=== PATIENT | female | born 1945 | race Caucasian/White ===

== ENCOUNTER → 2016-11-25 | Outpatient (CLI) | payer MEDICARE ==
--- NOTE | 2016-11-25 10:00 | FL ---
EXAMINATION TYPE: FL sniff test without CXR DATE OF EXAM: 11/25/2016 COMPARISON: NONE HISTORY: Disorder of the diaphragm TECHNIQUE: Fluoroscopy. FINDINGS: 4 seconds of fluoroscopy provided. There is normal parieto-occipital movement of the left hemidiaphragm. There is blunting of the moveme nt of the right hemidiaphragm. IMPRESSION: 1. There is blunting of the diaphragmatic movement of the right hemidiaphragm. A degree of phrenic ne rve paresis is in the differential diagnosis.
== END | disposition home or self-care (01) ==
LOC: RADFLWHC 09:13
PROVIDERS: ATTEND Thoracic Surgery (Cardiothoracic Vascular Surgery)
DX: J98.6 Disorders of diaphragm (principal); Z91.048 Other nonmedicinal substance allergy status
CPT/HCPCS: 76000

== ENCOUNTER 2016-12-13 07:29 | Inpatient (IN) | payer MEDICARE ==
[2016-12-09 11:55] VITALS: BMI 38.0
[~2016-12-13 07:29] MED LIST: HEPARIN SODIUM,PORCINE 5,000 UNIT/ML 1 ML VIAL SQ ONE; ceFAZolin 2 GM in SODIUM CHLORIDE 0.9% 100 ML IVPB ONE
[2016-12-13] MEDS ORDERED: LACTATED RINGERS 1,000 ML IV ONE ×3 (08:19→10:23)
[2016-12-13] MEDS ORDERED: LIDOCAINE 1% 20 ML VIAL (10MG/ML) FOR IV START INTRADERMA ONE (08:19)
[2016-12-13] MEDS ORDERED: BUPIVACAINE (PF) 0.5% 30 ML VIAL SQ ONE ×3 (08:21→09:59)
[2016-12-13] MEDS ORDERED: ONDANSETRON 4 MG/2 ML VIAL IVP ONE (08:23)
[2016-12-13] MEDS ORDERED: DEXAMETHASONE SOD PHOSPHATE 10 MG/ML 1 ML VIAL IV ONE (08:23)
[2016-12-13] MEDS ORDERED: LACTATED RINGERS 1,000 ML IV SCH (08:30)
[2016-12-13 08:31] LABS: Basophils # (A) 0.1 k/uL (0-0.2); Basophils % (A) 1 %; CH 28.2; CHCM 32.9; Eosinophils # (A) 0.1 k/uL (0-0.7); Eosinophils % (A) 1 %; HCT 41.5 % (34.0-46.0); HDW 2.59; HGB 14.2 gm/dL (11.4-16.0); Luc # (Auto) 0.23; Luc % (Auto) 3; Lymphocytes # (A) 2.2 k/uL (1.0-4.8); Lymphocytes % (A) 30 %; MCH 29.4 pg (25.0-35.0); MCHC 34.2 g/dL (31.0-37.0); Mean Platelet Volume 7.3; Monocytes # (A) 0.5 k/uL (0-1.0); Monocytes % (A) 8 %; Neutrophils # (A) 4.1 k/uL (1.3-7.7); Neutrophils % (A) 57 %; RBC 4.83 m/uL (3.80-5.40); WBC 7.1 k/uL (3.8-10.6); WBC (Perox) 6.91
[2016-12-13 08:36] LABS: INR 1.1 (<1.1); Partial Thromboplastin Time 24.5 sec (22.0-30.0)
[2016-12-13 08:39] LABS: Anion Gap 10 mmol/L; Blood Urea Nitrogen 22 mg/dL (7-17); Carbon Dioxide 28 mmol/L (22-30); Chloride 104 mmol/L (98-107); Non-African American GFR(MDRD) >60 (>60 ml/min/1.73 sqM); Potassium 4.8 mmol/L (3.5-5.1); Sodium 142 mmol/L (137-145)
[2016-12-13] MEDS ORDERED: fentaNYL (PF) 50 MCG/ML 2 ML AMP ONE (09:09)
[2016-12-13] MEDS ORDERED: GLYCOPYRROLATE 0.2 MG/ML 2 ML VIAL ONE (09:09)
[2016-12-13] MEDS ORDERED: ePHEDrine 50 MG/ML 1 ML AMP ONE (09:09)
[2016-12-13] MEDS ORDERED: MIDAZOLAM 2 MG/2 ML VIAL ONE (09:09)
[2016-12-13] MEDS ORDERED: PROPOFOL 10 MG/ML 20 ML VIAL IV ONE (09:09)
[2016-12-13] MEDS ORDERED: SUCCINYLCHOLINE CHLORIDE 100 MG/5 ML SYR IV ONE (09:09)
[2016-12-13] MEDS ORDERED: LIDOCAINE 1% INJ 10MG/ML (20 ML MDV) ONE (09:09)
[2016-12-13] MEDS ORDERED: NEOSTIGMINE 1 MG/ML 10 ML VIAL ONE (09:09)
[2016-12-13] MEDS ORDERED: ROCURONIUM BROMIDE 10 MG/ML 10 ML VIAL IV ONE (09:09)
--- NOTE | 2016-12-13 10:40 | P.OP ---
Date of Procedure: 12/13/16 Preoperative Diagnosis: Bilateral pulmonary infiltrates Postoperative Diagnosis: Bilateral pulmonary infiltrates Procedure(s) Performed: Right thoracoscopic lung biopsy Implants: Anesthesia: NICOLEA Surgeon: Inder Ryan Rad Tech #1: German White Estimated Blood Loss (ml): 25 IV fluids (ml): 1,000 Urine output (ml): 125 Pathology: other (Biopsies of both right upper and right lower lobe sent for pathology and culture) Condition: stable Disposition: PACU Indications for Procedure: 71-year-old female with worsening dyspnea on exertion. Long history of COPD. Computed tomography scan showed bilateral pulmonary infiltrates. Also noted was elevated right hemidiaphragm. Sniff test demonstrated no evidence of paradoxical motion of the right hemidiaphragm with diminished 8 excursion of the diaphragm. Diagnostic lung biopsy was requested by Dr. Spencer. Operative Findings: The lung had evidence of chronic obstructive pulmonary disease with emphysematous change and anthracotic pigmentation. Quality of the lung tissue was quite poor with increased friability of the lung tissue itself. Description of Procedure: The patient was brought to the operating room placed supine on the operating table anesthetized and intubated with a double-lumen endotracheal tube. Tube was positioned with fiberoptic bronchoscopy. No endobronchial lesions were noted. The patient was turned in the left lateral decubitus position and the right chest sterilely prepped and draped. 3 one-inch incisions were made in the right chest carried down through skin and subcutaneous tissue and into the right pleural space. The right lung was deflated. The video thoracoscope was introduced with findings as noted above. Generous wedge biopsies of the right upper lobe and right lower lobe were obtained. These were appropriately divided on the field and sent for both culture and pathology. A 28-Cuban chest tube was placed through separate stab incision and positioned posterior apically. It was secured with an 0 Ethibond suture. Rib blocks were performed at the level of the incisions posteriorly interspaces 5,6,7 and 8. The lung was reinflated under thoracoscopic visualization. Incisions were closed with layers of Vicryl suture. Steri-Strips and dry sterile dressings were applied. Patient was turned supine and extubated and transferred to recovery in stable condition.
[2016-12-13] MEDS: HYDROmorphone 1 MG/ML 1 ML SYRINGE IVP PRN ×2 (10:59→11:16)
--- NOTE | 2016-12-13 11:08 | XR ---
EXAMINATION TYPE: XR chest 1V portable DATE OF EXAM: 12/13/2016 Comparison: None Clinical History: 71-year-old female pneumothorax Findings: Low lung volumes with diffuse interstitial opacities. Question some surgical changes in the right liss g. Medial and apically directed right-sided chest tube is present without appreciable pneumothorax. S ome more patchy opacities present at the peripheral left base and right suprahilar region. Also sugge stion of small effusions. Impression: 1. Right-sided chest tube. No definite pneumothorax seen on this portable exam. 2. Correlate for CHF and interstitial pulmonary edema with small effusions. Scattered patchy areas of more confluent edema or infiltrates also noted.
[2016-12-13] MEDS ORDERED: ACETAMINOPHEN IV (For NPO) 1,000 MG/100 ML VIAL IVPB ONE (11:10)
[2016-12-13] MEDS ORDERED: IPRATROPIUM-ALBUTEROL 3 ML NEB IH PRN (12:20)
[2016-12-13] MEDS ORDERED: HYDROcodone/APAP 5-325MG 1 EACH TAB PO PRN ×2 (12:20)
[2016-12-13] MEDS ORDERED: CYCLOBENZAPRINE 10 MG TAB PO PRN (12:20)
[2016-12-13] MEDS ORDERED: ONDANSETRON 4 MG/2 ML VIAL IVP PRN (12:20)
[2016-12-13] MEDS ORDERED: DEXTROSE 5%-0.45% NACL 1,000 ML IV SCH (12:20)
[2016-12-13] MEDS ORDERED: ACETAMINOPHEN IV (For NPO) 1,000 MG in EMPTY BAG 1 BAG IVPB STA (12:20)
[2016-12-13] MEDS ORDERED: ALPRAZolam 0.25 MG TAB PO PRN (12:20)
[2016-12-13] MEDS: IPRATROPIUM-ALBUTEROL 3 ML NEB IH SCH ×3 (12:25→19:01)
[2016-12-13] MEDS: KETOROLAC 30 MG/ML 1 ML VIAL IVP PRN ×2 (12:43→18:54)
--- NOTE | 2016-12-13 15:48 | P.CNPUL ---
History of Present Illness Consult date: 12/13/16 Requesting physician: Inder Ryan Reason for consult: other (Interstitial lung disease, patient is status post lung biopsy.) Chief complaint: Shortness of breath History of present illness: This is a 71-year-old female with history of multiple medical problems including osteoarthritis, obesity and previous lab band procedure 2, patient saw me a few weeks ago with chronic cough of 2 years duration, and shortness of breath on exertion. Cough was described as dry hacking cough, nonproductive, no wheezing, no fever, no chills, no hemoptysis. Patient was also complaining of shortness of breath upon exertion for the last 2 years. Chest x-ray and CT of the chest were suggestive of mild interstitial lung disease. Hence patient had extensive workup for possible underlying connective tissue disease, and her workup was relatively negative. Although she was told about 12 years ago that she may have had rheumatoid arthritis, but apparently was seronegative rheumatoid arthritis. Patient underwent a sniff test to evaluate the right hemidiaphragm for possible paralysis, and she had a normal sniff test. Hence the patient underwent thoracoscopic lung biopsy for tissue diagnosis and to be able to pinpoint the exact etiology of her interstitial lung disease if possible. Postoperatively, I was asked to see the patient on consultation. Patient had remote smoking history, and she does not drink any alcohol. Her PFT in my office showed evidence of restrictive lung disease. Echocardiogram failed to show evidence of pulmonary hypertension. Review of Systems Constitutional: No weight loss, no fever, no chills, she does have generalized weakness, vague aches and pains. HEENT: No headaches no blurred vision no dizziness. No history of seizures. No sore throat. No cervical lymphadenopathy. Chest: As noted in the history of the present illness. Cardiac denies any chest pain, no palpitations, no diaphoresis. GI: Denies any nausea vomiting abdominal pain melena or hematemesis. Genitourinary: Denies any dysuria frequency or urgency. Neurologic: Denies any headaches, blurred vision, dizziness, or ataxia. Musculoskeletal: Vague aches and pains. Hematologic: Denies any symptoms of bleeding clotting or bruising. Psychiatric: No symptoms of active depression. Past Medical History Past Medical History: GERD/Reflux, Osteoarthritis (OA), Thyroid Disorder Additional Past Medical History / Comment(s): tremor left hand, SOB w/exertion- started in May., chronic back pain, scheduled for heart echo @[facility] Tuesday History of Any Multi-Drug Resistant Organisms: None Reported Past Surgical History: Back Surgery, Bariatric Surgery, Joint Replacement, Tubal Ligation Additional Past Surgical History / Comment(s): back surg. x 2, bilateral knee replacement-left x2, lap band surg. Past Anesthesia/Blood Transfusion Reactions: Previous Problems w/ Anesthesia Additional Past Anesthesia/Blood Transfusion Reaction / Comment(s): slow to wake up only once Smoking Status: Former smoker - Past Family History Mother Family Medical History: Cancer Medications and Allergies Home Medications Medication Instructions Recorded Confirmed Type ALPRAZolam [Xanax] 0.25 mg PO BID PRN 12/09/16 12/13/16 History Biotin 900 mcg PO DAILY 12/09/16 12/13/16 History Celecoxib [CeleBREX] 200 mg PO DAILY 12/09/16 12/13/16 History Cyclobenzaprine [Flexeril] 10 mg PO TID PRN 12/09/16 12/13/16 History DULoxetine HCL [Cymbalta] 60 mg PO DAILY 12/09/16 12/13/16 History HYDROcodone/APAP 5-325MG [[place] 1 - 2 tab PO Q6HR PRN 12/09/16 12/13/16 History 5-325] Levothyroxine Sodium [Synthroid] 50 mcg PO DAILY 12/09/16 12/13/16 History Magnesium 200 mg PO DAILY 12/09/16 12/13/16 History Montelukast [Singulair] 10 mg PO HS 12/09/16 12/13/16 History Ranitidine HCl [Zantac] 150 mg PO BID 12/09/16 12/13/16 History hydrOXYzine PAMOATE [Vistaril] 25 mg PO BID PRN 12/09/16 12/13/16 History Allergies Allergy/AdvReac Type Severity Reaction Status Date / Time nickel Allergy Rash/Hives Verified 12/13/16 11:02 Physical Exam Vitals: Vital Signs Temp Pulse Pulse Pulse Resp BP BP 12/13/16 15:30 88 12/13/16 15:08 96.8 F L 85 16 111/53 12/13/16 11:59 96.9 F L 90 16 120/71 12/13/16 11:34 94 16 127/59 07/03/17 11:23 90 16 142/65 12/13/16 11:08 85 16 139/62 12/13/16 10:53 89 16 135/62 12/13/16 10:37 97.2 F L 92 16 151/66 12/13/16 07:55 97.4 F L 85 18 145/83 Pulse Ox 12/13/16 15:30 12/13/16 15:08 95 12/13/16 11:59 93 L 12/13/16 11:34 92 L 12/13/16 11:23 92 L 12/13/16 11:08 96 12/13/16 10:53 96 12/13/16 10:37 93 L 12/13/16 07:55 95 Intake and Output 12/13/16 12/13/16 12/13/16 06:59 14:59 22:59 Intake Total 1200 Output Total 150 Balance 1050 Intake: IV 1200 Output: Urine 125 Estimated Blood Loss 25 Other: # Voids 1 Physical Exam: Revealed a 71-year-old female, in no distress. HEENT:[Neck is supple.] [No neck masses.] [No thyromegaly.] [No JVD.] Chest: [Crackles at the bases, right sided chest tube is noted. Cardiac Exam: [Normal S1 and S2, no S3 gallop, no murmur.] Abdomen: [Soft, nontender, no megaly, no rebound, no guarding, normal bowel sounds.] Extremities: [No clubbing, no edema, no cyanosis.] Neurological Exam: [No focal neurologic deficit.] Results - Laboratory Findings CBC and BMP: 12/13/16 08:13 12/13/16 08:13 PT/INR, D-dimer PT 11.0 sec (9.0-12.0) 12/13/16 08:13 INR 1.1 (<1.1) 12/13/16 08:13 Abnormal lab findings: Abnormal Labs 12/13/16 08:13 BUN 22 H - Diagnostic Findings Chest x-ray: image reviewed (Postoperative changes right sided chest tube is noted, and evidence of interstitial lung disease) Assessment and Plan Plan: Impression: 1 Status post thoracoscopic lung biopsy from right upper lobe and right lower lobe. Postoperative day 0. 2 interstitial lung disease, status post lung biopsy. 3 chronic shortness of breath secondary to interstitial lung disease/ restrictive lung disease. 4 multiple comorbidities including history of hypothyroidism, GERD, osteoarthritis, and history of vitamin D deficiency. Recommendation: Continue present treatment plan, patient is already on bronchodilators, added incentive spirometry, resume her usual meds, possibly discharge the patient home in the next 24 hours once the chest tube has been removed. We'll continue to follow. Time with Patient: Greater than 30
[2016-12-13] MEDS ORDERED: ceFAZolin 2 GM in SODIUM CHLORIDE 0.9% 100 ML IVPB SCH (16:00)
[2016-12-13] MEDS ORDERED: ACETAMINOPHEN IV (For NPO) 1,000 MG in EMPTY BAG 1 BAG IVPB ONE (17:00)
[2016-12-13] MEDS: HEPARIN SODIUM,PORCINE 5,000 UNIT/ML 1 ML VIAL SQ SCH (20:05)
[2016-12-13] MEDS: FAMOTIDINE 20 MG TAB PO SCH (20:05)
[2016-12-13] MEDS ORDERED: MONTELUKAST 10 MG TAB PO SCH (21:00)
[2016-12-14] MEDS: KETOROLAC 30 MG/ML 1 ML VIAL IVP PRN ×2 (00:29→06:16)
[2016-12-14 06:08] LABS: Basophils % (A) 0 %; CH 28.4; Eosinophils % (A) 0 %; HCT 36.4 % (34.0-46.0); HGB 12.4 gm/dL (11.4-16.0); Luc # (Auto) 0.12; Luc % (Auto) 1; Lymphocytes # (A) 1.3 k/uL (1.0-4.8); Lymphocytes % (A) 10 %; MCH 29.5 pg (25.0-35.0); MCHC 34.1 g/dL (31.0-37.0); MCV 86.4 fL (80.0-100.0); Monocytes # (A) 0.8 k/uL (0-1.0); Monocytes % (A) 6 %; Neutrophils # (A) 11.2 k/uL (1.3-7.7); Neutrophils % (A) 83 %; RBC 4.21 m/uL (3.80-5.40); RDW 13.2 % (11.5-15.5); WBC 13.5 k/uL (3.8-10.6); WBC (Perox) 13.71
[2016-12-14 06:18] LABS: Anion Gap 6 mmol/L; Blood Urea Nitrogen 20 mg/dL (7-17); Calcium 9.1 mg/dL (8.4-10.2); Carbon Dioxide 28 mmol/L (22-30); Chloride 104 mmol/L (98-107); Glucose 121 mg/dL (74-99); Non-African American GFR(MDRD) >60 (>60 ml/min/1.73 sqM); Potassium 4.6 mmol/L (3.5-5.1); Sodium 138 mmol/L (137-145)
[2016-12-14] MEDS ORDERED: LEVOTHYROXINE 50 MCG TAB PO SCH (06:30)
--- NOTE | 2016-12-14 07:38 | XR ---
EXAMINATION TYPE: XR chest 1V DATE OF EXAM: 12/14/2016 COMPARISON: Yesterday HISTORY: Postop lung surgery TECHNIQUE: Single frontal view of the chest is obtained. FINDINGS: There is right chest tube that appears in good position. I see no pneumothorax. There are chest leads. There is coarsening of interstitial markings. There is elevated right diaphragm. There i s no gross heart failure. IMPRESSION: Right chest tube is in good position. There is some pulmonary interstitial edema that is improved slightly compared to yesterday.
--- NOTE | 2016-12-14 07:43 | P.PN ---
Subjective Principal diagnosis: Bilateral pulmonary infiltrates POD #1 right thorascopic lung biopsy. Patient is currently sitting up in bed in no acute distress. States pain is mostly controlled on ordered pain medications. Objective - Vital Signs Vital signs: Vital Signs Temp 97.2 F L 12/14/16 04:00 Pulse 76 12/14/16 04:00 Resp 16 12/14/16 04:00 BP 105/71 12/14/16 04:00 Pulse Ox 97 12/14/16 04:00 Intake & Output 12/13/16 12/14/16 12/14/16 18:59 06:59 18:59 Intake Total 1318 640 Output Total 150 850 Balance 1168 -210 Weight 99.1 kg Intake: IV 1200 640 Dextrose 5%-0.45% NaCl 1, 640 000 ml @ 40 mls/hr IV . Q24H RAJIV Rx#:[id number] Oral 118 Output: Chest Tube Drainage 37 Chest Tube Right Lateral 37 Chest Drainage 13 Right Chest 13 Urine 125 800 Uretheral (Mike) 800 Estimated Blood Loss 25 Other: Voiding Method Toilet # Voids 1 1 - Constitutional General appearance: Present: cooperative, no acute distress - Respiratory Details: Lungs sounds diminished bilaterally. Respirations even, nonlabored. Currently on room air with oxygen saturation 93%. Able to achieve 750 mL on her incentive spirometry. Right pleural chest tube to -20 cm wall suction, 50 mL serous output overnight, 140 mL since surgery. No air leak present. Chest tube placed to waterseal. - Cardiovascular Details: S1, S2 present. Regular rate and rhythm, normal sinus rhythm on telemetry. - Gastrointestinal Gastrointestinal Comment(s): Abdomen soft, nontender, nondistended. Active bowel sounds 4 quadrants. Tolerating diet. - Genitourinary Genitourinary Comment(s): Voiding clear, yellow urine. - Musculoskeletal Musculoskeletal: Present: gait normal, strength equal bilaterally - Psychiatric Psychiatric: Present: A&O x's 3, appropriate affect, intact judgment & insight - Allied health notes Allied health notes reviewed: nursing - Labs CBC & Chem 7: 12/14/16 05:39 12/14/16 05:37 Labs: Abnormal Lab Results - Last 24 Hours (Table) 12/13/16 12/14/16 12/14/16 Range/Units 08:13 05:37 05:39 WBC 13.5 H (3.8-10.6) k/uL Neutrophils # 11.2 H (1.3-7.7) k/uL BUN 22 H 20 H (7-17) mg/dL Glucose 121 H (74-99) mg/dL Microbiology - Last 24 Hours (Table) 12/13/16 11:00 Gram Stain - Preliminary Lung - Right Lower Lobe Tissue Culture - Preliminary 12/13/16 11:00 Gram Stain - Preliminary Lung - Right Upper Lobe Tissue Culture - Preliminary 12/13/16 11:00 Acid Fast Bacilli Culture - Preliminary Lung - Right Upper Lobe 12/13/16 11:00 Anaerobic Culture - Preliminary Lung - Right Upper Lobe 12/13/16 11:00 Acid Fast Bacilli Culture - Preliminary Lung - Right Lower Lobe 12/13/16 11:00 Anaerobic Culture - Preliminary Lung - Right Lower Lobe - Imaging and Cardiology Chest x-ray: image reviewed Assessment and Plan (1) Bilateral pulmonary infiltrates on chest x-ray Status: Acute (2) COPD (chronic obstructive pulmonary disease) Status: Acute Plan: 1. Chest tube clamped. Will unclamp in one hour, if no air leak will discontinue chest tube and obtain chest x-ray. 2. Encourage incentive spirometry use. 3. Increase activity, ambulate in hallway. 4. Anticipate discharging patient to home once chest tube is removed with follow-up appointments with Dr. Spencer and Dr. Ryan.. Time with Patient: Greater than 30
[2016-12-14] MEDS: IPRATROPIUM-ALBUTEROL 3 ML NEB IH SCH ×2 (07:44→11:55)
[2016-12-14] MEDS: HEPARIN SODIUM,PORCINE 5,000 UNIT/ML 1 ML VIAL SQ SCH (08:57)
[2016-12-14] MEDS: FAMOTIDINE 20 MG TAB PO SCH (08:57)
[2016-12-14] MEDS ORDERED: DULoxetine HCL 60 MG CAPSULE.DR PO SCH (09:00)
[2016-12-14] MEDS ORDERED: MAGNESIUM OXIDE 400 MG TAB PO SCH (09:00)
--- NOTE | 2016-12-14 10:11 | XR ---
EXAMINATION TYPE: XR chest 2V DATE OF EXAM: 12/14/2016 COMPARISON: Today HISTORY: Chest tube removed TECHNIQUE: Frontal and lateral views of the chest are obtained. FINDINGS: There is been removal of the large right chest tube. There is elevated right diaphragm. Th ere is a small infiltrate in the right upper lobe. There is no gross heart failure. There is coarseni ng of interstitial markings. IMPRESSION: No pneumothorax. Mild right upper lobe infiltrate without change compared to exam this m orning. Interstitial pulmonary infiltrates.
--- NOTE | 2016-12-14 10:42 | P.DS ---
Providers Date of admission: 12/13/16 07:29 Attending physician: Inder Ryan Consults: 12/13/16 12:20 Consult Physician Routine Consulting Provider: Debbi Spencer Reason/Comments: Pulmonary management Do you want consulting provider notified?: Yes Primary care physician: Nancy Roldan - Discharge Diagnosis(es) (1) Bilateral pulmonary infiltrates on chest x-ray Current Visit: Yes Status: Acute (2) COPD (chronic obstructive pulmonary disease) Current Visit: Yes Status: Acute Hospital Course: FINAL DIAGNOSIS: 1.[ Bilateral pulmonary infiltrates] 2.[ COPD] 3.[ Obesity status post lap band surgery] 4.[ Arthritis] 5.[ Previous tobacco dependence] PRINCIPAL PROCEDURE: [] 1.[ Right thoracoscopic lung biopsy] HISTORY OF PRESENT ILLNESS: [This 71-year-old lady presented with marked shortness of breath and dyspnea on exertion which began in August. She initially saw her primary care physician, had a chest x-ray and CAT scan, which was read as showing bilateral pulmonary infiltrates consistent with early pulmonary fibrosis. She was referred to Dr. Spencer who performed pulmonary function tests demonstrating restrictive disease as well as significant AA gradient and diminished DLCO. Secondary to these findings the patient was referred to Dr. Ryan of cardiothoracic surgery for diagnostic lung biopsy. The patient was seen and examined in Dr. Ryan's office, all risks and benefits were explained in detail to the patient, and she agreed to proceed with surgery.] HOSPITAL COURSE:[ The patient was brought to the hospital on 12/13/2016, taken to the preoperative area, prepared in the usual fashion, and subsequently taken to the operating room where Dr. Ryan performed an elective right thoracoscopic lung biopsy. Upon completion of surgery the patient was extubated and transferred to the postanesthesia recovery unit where she was recovered and monitored hemodynamically. Once considered stable she was transferred to [address] [place] [address] for further monitoring and rehabilitation. Her oxygen was titrated down, she she was ambulating in the hallway, her chest tube was discontinued on postoperative day #1, repeat chest x-ray revealed no pneumothorax, and she was ready to be discharged to home in stable condition. She received written and verbal instruction regarding her medications, activity restrictions, signs and symptoms requiring physician notification, and follow- up appointments.] COMPLICATIONS: [The patient experienced no postoperative complications.] CONSULTATIONS: 1.[ Dr. Tj for pulmonology] DISCHARGE INSTRUCTIONS: 1. No driving for 2 weeks, or until physician gives their ok. 2. The patient should sleep in their own bed, no medical bed needed. 3. No lifting, pushing, or pulling more than 10 pounds for 2 weeks. The physician will advise of any restriction changes. 4. Continue pain control per as needed orders. 5. Continue with incentive spirometry until otherwise directed by the physician. 6. Shower daily starting 12-16-16 using liquid antibacterial soap and a separate white washcloth for each individual incision. 7. Routine incision care. No powders, lotions, ointments on incisions. 8. Please call surgeon/[employer] for temp greater than 101 F or purulent drainage from incisions. Plan - Discharge Summary New Discharge Prescriptions: Continue Celecoxib [CeleBREX] 200 mg PO DAILY Levothyroxine Sodium [Synthroid] 50 mcg PO DAILY Ranitidine HCl [Zantac] 150 mg PO BID Montelukast [Singulair] 10 mg PO HS DULoxetine HCL [Cymbalta] 60 mg PO DAILY Cyclobenzaprine [Flexeril] 10 mg PO TID PRN PRN Reason: Muscle Spasm ALPRAZolam [Xanax] 0.25 mg PO BID PRN PRN Reason: Anxiety HYDROcodone/APAP 5-325MG [[place] 5-325] 1 - 2 tab PO Q6HR PRN PRN Reason: Pain hydrOXYzine PAMOATE [Vistaril] 25 mg PO BID PRN PRN Reason: Itching Magnesium 200 mg PO DAILY Biotin 900 mcg PO DAILY Discharge Medication List ALPRAZolam [Xanax] 0.25 mg PO BID PRN 12/09/16 [History] Biotin 900 mcg PO DAILY 12/09/16 [History] Celecoxib [CeleBREX] 200 mg PO DAILY 12/09/16 [History] Cyclobenzaprine [Flexeril] 10 mg PO TID PRN 12/09/16 [History] DULoxetine HCL [Cymbalta] 60 mg PO DAILY 12/09/16 [History] HYDROcodone/APAP 5-325MG [[place] 5-325] 1 - 2 tab PO Q6HR PRN 12/09/16 [History] Levothyroxine Sodium [Synthroid] 50 mcg PO DAILY 12/09/16 [History] Magnesium 200 mg PO DAILY 12/09/16 [History] Montelukast [Singulair] 10 mg PO HS 12/09/16 [History] Ranitidine HCl [Zantac] 150 mg PO BID 12/09/16 [History] hydrOXYzine PAMOATE [Vistaril] 25 mg PO BID PRN 12/09/16 [History] Follow up Appointment(s)/Referral(s): Debbi Spencer MD [STAFF PHYSICIAN] - 1 Week Inder Ryan MD [STAFF PHYSICIAN] - 1 Week Activity/Diet/Wound Care/Special Instructions: DISCHARGE INSTRUCTIONS: 1. No driving for 2 weeks, or until physician gives their ok. 2. The patient should sleep in their own bed, no medical bed needed. 3. No lifting, pushing, or pulling more than 10 pounds for 2 weeks. The physician will advise of any restriction changes. 4. Continue pain control per as needed orders. 5. Continue with incentive spirometry until otherwise directed by the physician. 6. Shower daily starting 12-16-16 using liquid antibacterial soap and a separate white washcloth for each individual incision. 7. Routine incision care. No powders, lotions, ointments on incisions. 8. Please call surgeon/[employer] for temp greater than 101 F or purulent drainage from incisions. Discharge Disposition: HOME SELF-CARE
[2016-12-14 11:09] VITALS: BP 138/72; RESP 18; TEMP 97.6
--- NOTE | 2016-12-14 11:10 | P.PN ---
Subjective Principal diagnosis: Interstitial lung disease, patient is status post thoracoscopic lung biopsy. This is a 71-year-old female with history of multiple medical problems including osteoarthritis, obesity and previous lab band procedure 2, patient saw me a few weeks ago with chronic cough of 2 years duration, and shortness of breath on exertion. Cough was described as dry hacking cough, nonproductive, no wheezing, no fever, no chills, no hemoptysis. Patient was also complaining of shortness of breath upon exertion for the last 2 years. Chest x-ray and CT of the chest were suggestive of mild interstitial lung disease. Hence patient had extensive workup for possible underlying connective tissue disease, and her workup was relatively negative. Although she was told about 12 years ago that she may have had rheumatoid arthritis, but apparently was seronegative rheumatoid arthritis. Patient underwent a sniff test to evaluate the right hemidiaphragm for possible paralysis, and she had a normal sniff test. Hence the patient underwent thoracoscopic lung biopsy for tissue diagnosis and to be able to pinpoint the exact etiology of her interstitial lung disease if possible. Postoperatively, I was asked to see the patient on consultation. Patient had remote smoking history, and she does not drink any alcohol. Her PFT in my office showed evidence of restrictive lung disease. Echocardiogram failed to show evidence of pulmonary hypertension. Patient was reevaluated today on 12/14/2016, doing well, chest tube has been removed, patient is going to be discharged home today, and she would have follow -up on outpatient basis. Objective - Vital Signs Vital signs: Vital Signs Temp 96.8 F L 12/14/16 09:00 Pulse 95 12/14/16 09:00 Resp 20 12/14/16 09:00 BP 126/51 12/14/16 09:00 Pulse Ox 95 12/14/16 09:00 Intake & Output 12/13/16 12/14/16 12/14/16 18:59 06:59 18:59 Intake Total 1318 640 Output Total 150 850 Balance 1168 -210 Weight 99.1 kg Intake: IV 1200 640 Dextrose 5%-0.45% NaCl 1, 640 000 ml @ 40 mls/hr IV . Q24H RAJIV Rx#:[id number] Oral 118 Output: Chest Tube Drainage 37 Chest Tube Right Lateral 37 Chest Drainage 13 Right Chest 13 Urine 125 800 Uretheral (Mike) 800 Estimated Blood Loss 25 Other: Voiding Method Toilet Toilet # Voids 1 1 - Exam Physical Exam HEENT:[Neck is supple.] [No neck masses.] [No thyromegaly.] [No JVD.] Chest: [Minimal fine crackles at the bases] Cardiac Exam: [Normal S1 and S2, no S3 gallop, no murmur.] Abdomen: [Soft, nontender, no megaly, no rebound, no guarding, normal bowel sounds.] Extremities: [No clubbing, no edema, no cyanosis.] Neurological Exam: [No focal neurologic deficit.] - Labs CBC & Chem 7: 12/14/16 05:39 12/14/16 05:37 Labs: Abnormal Lab Results - Last 24 Hours (Table) 12/14/16 12/14/16 Range/Units 05:37 05:39 WBC 13.5 H (3.8-10.6) k/uL Neutrophils # 11.2 H (1.3-7.7) k/uL BUN 20 H (7-17) mg/dL Glucose 121 H (74-99) mg/dL Microbiology - Last 24 Hours (Table) 12/13/16 11:00 Gram Stain - Preliminary Lung - Right Upper Lobe Tissue Culture - Preliminary 12/13/16 11:00 Gram Stain - Preliminary Lung - Right Lower Lobe Tissue Culture - Preliminary 12/13/16 11:00 Acid Fast Bacilli Culture - Preliminary Lung - Right Upper Lobe 12/13/16 11:00 Anaerobic Culture - Preliminary Lung - Right Upper Lobe 12/13/16 11:00 Acid Fast Bacilli Culture - Preliminary Lung - Right Lower Lobe 12/13/16 11:00 Anaerobic Culture - Preliminary Lung - Right Lower Lobe Assessment and Plan Plan: Impression: 1 Status post thoracoscopic lung biopsy from right upper lobe and right lower lobe. Postoperative day #1 2 interstitial lung disease, status post lung biopsy. 3 chronic shortness of breath secondary to interstitial lung disease/ restrictive lung disease. 4 multiple comorbidities including history of hypothyroidism, GERD, osteoarthritis, and history of vitamin D deficiency. Recommendation: Agree with discharge planning, follow-up on outpatient basis with Dr. Stover in one week. Patient was advised to call our office in the next few days for setting up an appointment with Dr. Stover or Dr. Ann. Time with Patient: Less than 30
[2016-12-14 12:06] VITALS: PULSE 80
== END 2016-12-14 13:02 | disposition home or self-care (01) | DRG 168 ==
LOC: 2ORWHC 07:29 → EDSTATUS 09:00 → 6SEL 10:40
PROVIDERS: ADMIT Thoracic Surgery (Cardiothoracic Vascular Surgery); ATTEND Thoracic Surgery (Cardiothoracic Vascular Surgery)
PROC: 0BBC4ZX Excision of Right Upper Lung Lobe, Percutaneous Endoscopic Approach, Diagnostic (ICD-10-PCS; 2016-12-13)
PROC: 0BBF4ZX Excision of Right Lower Lung Lobe, Percutaneous Endoscopic Approach, Diagnostic (ICD-10-PCS; principal; 2016-12-13 09:00)
DX: R91.8 Other nonspecific abnormal finding of lung field (principal); J44.9 Chronic obstructive pulmonary disease, unspecified; J98.4 Other disorders of lung; E55.9 Vitamin D deficiency, unspecified; E03.9 Hypothyroidism, unspecified; K21.9 Gastro-esophageal reflux disease without esophagitis; M19.91 Primary osteoarthritis, unspecified site; G89.29 Other chronic pain; R25.1 Tremor, unspecified; M54.9 Dorsalgia, unspecified; E66.9 Obesity, unspecified; Z98.84 Bariatric surgery status; Z87.891 Personal history of nicotine dependence; Z96.653 Presence of artificial knee joint, bilateral; Z79.1 Long term (current) use of non-steroidal anti-inflammatories (NSAID); Z79.899 Other long term (current) drug therapy; Z88.9 Allergy status to unspecified drugs, medicaments and biological substances
CPT/HCPCS: 71010; 71020; 80048; 80051; 82565; 84520; 85025; 85610; 85730; 87070; 87075; 87116; 87205; 87206; 88307; 88312; 93005; 94640

== ENCOUNTER → 2017-05-09 | Outpatient (CLI) | payer MEDICARE ==
[2017-05-09 13:54] VITALS: BP 165/86; PULSE 49; TEMP 97.9; BMI 37.8
--- NOTE | 2017-05-09 15:35 | P.HPBAR ---
Bariatric H&P - History & Physicial H&P Date: 05/09/17 History & Physicial: Visit/CC: lap band follow up Patient initial contact: Initial weight: Initial weight in pounds: Height: 5 ft 3.5 in Initial BMI: Last weight: Current weight: 98.293 kg Current weight in pounds: 216.70 Current BMI: 37.8 [place] body weight (based on NIH guidelines): 53.297 kg Excess body weight loss: The patient is a 72 year-old F who presents for Bariatric Assessment. The patient has had complaints of dysphagia. She is recently diagnosed with pulmonary fibrosis and wished to have her LAP-BAND removed. She's had trouble with GERD and dysphagia. She is unsure if her band is empty. Past Medical History Past Medical History: GERD/Reflux, Osteoarthritis (OA), Thyroid Disorder Additional Past Medical History / Comment(s): tremor left hand, SOB w/exertion- started in May., chronic back pain, scheduled for heart echo @[facility] Tuesday pulmonary fibrosis History of Any Multi-Drug Resistant Organisms: None Reported Past Surgical History: Back Surgery, Bariatric Surgery, Joint Replacement, Tubal Ligation Additional Past Surgical History / Comment(s): back surg. x 2, bilateral knee replacement-left x2, lap band surg. Past Anesthesia/Blood Transfusion Reactions: Previous Problems w/ Anesthesia Additional Past Anesthesia/Blood Transfusion Reaction / Comm: slow to wake up only once Past Psychological History: Anxiety Smoking Status: Former smoker Past Alcohol Use History: Occasional Additional Past Alcohol Use History / Comment(s): quit smoking 20 yrs. ago, 1-1/ 2ppd for 20 yrs. Past Drug Use History: None Reported - Past Family History Mother Family Medical History: Cancer Surgical - Exam Vital Signs Temp Pulse BP 97.9 F 49 L 165/86 05/09/17 13:51 05/09/17 13:51 05/09/17 13:51 - General well developed, no distress - Abdomen Abdomen: soft, non tender Bariatric Assessment & Plan Plan: The patient's LAP-BAND was empty. She had 6.8 mL removed from her band. The patient will be scheduled for explantation of her band next week. Bariatric Checklist Checklist: Plan: Checklist: EGD: 1. Hiatal hernia: 2. H. Pylori: HgbA1c: Vitamin D: Smoking: Former smoker Primary care physician referral: dr jenkins Psychiatry clearance: Cardiology clearance: Sleep study: Diet journal: VTE risk score: VTE risk level: Rehab needs at discharge:
== END | disposition home or self-care (01) ==
LOC: BARWHC3 13:09
PROVIDERS: ATTEND Surgery
DX: Z48.815 Encounter for surgical aftercare following surgery on the digestive system (principal); Z87.891 Personal history of nicotine dependence; Z98.84 Bariatric surgery status
CPT/HCPCS: 99202

== ENCOUNTER → 2017-05-09 | Outpatient (CLI) | payer MEDICARE ==
[2017-05-09 14:57] LABS: Basophils % (A) 1 %; CH 29.7; CHCM 34.2; Eosinophils # (A) 0.1 k/uL (0-0.7); Eosinophils % (A) 1 %; HCT 42.3 % (34.0-46.0); HGB 14.2 gm/dL (11.4-16.0); Luc % (Auto) 2; Lymphocytes # (A) 1.9 k/uL (1.0-4.8); Lymphocytes % (A) 22 %; MCH 29.2 pg (25.0-35.0); MCHC 33.4 g/dL (31.0-37.0); MCV 87.3 fL (80.0-100.0); Mean Platelet Volume 6.8; Monocytes # (A) 0.7 k/uL (0-1.0); Monocytes % (A) 7 %; Neutrophils # (A) 5.9 k/uL (1.3-7.7); Neutrophils % (A) 67 %; RBC 4.85 m/uL (3.80-5.40); WBC 8.8 k/uL (3.8-10.6); WBC (Perox) 8.51
[2017-05-09 15:00] LABS: ALT 26 U/L (9-52); AST 28 U/L (14-36); Alkaline Phosphatase 68 U/L (38-126); Anion Gap 9 mmol/L; Blood Urea Nitrogen 13 mg/dL (7-17); Calcium 9.5 mg/dL (8.4-10.2); Carbon Dioxide 26 mmol/L (22-30); Chloride 106 mmol/L (98-107); Glucose 139 mg/dL (74-99); Non-African American GFR(MDRD) >60 (>60 ml/min/1.73 sqM); Potassium 4.1 mmol/L (3.5-5.1); Sodium 141 mmol/L (137-145); Total Bilirubin 0.6 mg/dL (0.2-1.3); Total Protein 7.4 g/dL (6.3-8.2)
== END | disposition home or self-care (01) ==
LOC: LABPAT 14:26
PROVIDERS: ATTEND Surgery
DX: Z01.818 Encounter for other preprocedural examination (principal)
CPT/HCPCS: 36415; 80053; 85025; 99202

== ENCOUNTER → 2017-07-18 | Outpatient (CLI) | payer MEDICARE ==
[2017-07-18 14:27] VITALS: BP 183/83; PULSE 91; RESP 15; TEMP 98.1; BMI 38.4
--- NOTE | 2017-07-18 15:47 | P.HPBAR ---
Bariatric H&P - History & Physicial H&P Date: 07/18/17 History & Physicial: Visit/CC: band removal sx f/u Patient initial contact: Initial weight: Initial weight in pounds: Height: 5 ft 3.5 in Initial BMI: Last weight: Current weight: 100.017 kg Current weight in pounds: 220.50 Current BMI: 38.4 [place] body weight (based on NIH guidelines): 53.297 kg Excess body weight loss: The patient is a 72 year-old F who presents for Bariatric Assessment. Patient presents today for bariatric follow-up. She had her LAP-BAND removed several weeks ago. She's gained 6 pounds since her band was removed. Past Medical History Past Medical History: GERD/Reflux, Osteoarthritis (OA), Thyroid Disorder Additional Past Medical History / Comment(s): increased in heartburn,acid reflux ,and vomiting for last year,tremor left hand, SOB,pulmonary fibrosis, chronic back pain,steroid March 2017 History of Any Multi-Drug Resistant Organisms: None Reported Past Surgical History: Back Surgery, Bariatric Surgery, Joint Replacement, Tubal Ligation Additional Past Surgical History / Comment(s): back surg. x 2, bilateral knee replacement-left x2, lap band surg.lap band removal 05-23-17 Past Anesthesia/Blood Transfusion Reactions: Previous Problems w/ Anesthesia, Postoperative Nausea & Vomiting (PONV) Additional Past Anesthesia/Blood Transfusion Reaction / Comm: slow to wake up only once,no hx blood transfusion Smoking Status: Former smoker - Past Family History Mother Family Medical History: Cancer Additional Family Medical History / Comment(s): melanoma Father Additional Family Medical History / Comment(s): heart problems Surgical - Exam Vital Signs Temp Pulse Resp BP 98.1 F 91 15 183/83 07/18/17 14:18 07/18/17 14:18 07/18/17 14:18 07/18/17 14:18 - General well developed, well nourished, no distress - Eyes PERRL - ENT normal pinna - Neck no masses - Respiratory normal expansion - Cardiovascular Rhythm: regular - Abdomen Abdomen: soft, non tender Bariatric Assessment & Plan Plan: The patient follow-up: Month. I discussed the possibility of sleeve gastrectomy for weight gain in continuous. Her BMI is 39. Bariatric Checklist Checklist: Plan: Checklist: EGD: 1. Hiatal hernia: 2. H. Pylori: HgbA1c: Vitamin D: Smoking: Former smoker Primary care physician referral: Psychiatry clearance: Cardiology clearance: Sleep study: Diet journal: VTE risk score: VTE risk level: Rehab needs at discharge:
== END | disposition home or self-care (01) ==
LOC: BARWHC3 13:36
PROVIDERS: ATTEND Surgery
DX: Z48.815 Encounter for surgical aftercare following surgery on the digestive system (principal); Z98.84 Bariatric surgery status; Z87.891 Personal history of nicotine dependence; Z68.38 Body mass index [BMI] 38.0-38.9, adult
CPT/HCPCS: 99211